=== PATIENT | female | born 1945 | race African-American/Black ===

== ENCOUNTER 2022-05-08 15:27 | Emergency (ER) | payer SELFPAY ==
[~2022-05-08] VITALS: Ht 162.6 cm; Wt 113.4 kg
[2022-05-08 15:41] VITALS: BP 138/92
--- NOTE | 2022-05-08 16:00 | NUR ---
76 y/o female biba from home, c/o dizzy and nausea after ingesting candy. pt states she didnt know the candy contained marijuana and estimated 25mg, unknown amount of thc gummies. pmh: denies nka med: denies
--- NOTE | 2022-05-08 18:25 | NUR ---
Patient being evaluated by BHANU JAMIL at TRIAGE ROOM.
[2022-05-08] MEDS ORDERED: ONDANSETRON 4 MG ODT PO ONE (18:30)
[2022-05-08 21:24] VITALS: BP 138/92
--- NOTE | 2022-05-08 21:24 | NUR ---
Patient discharged with v/s stable. Written and verbal after care instructions given and explained. Patient verbalized understanding. Ambulatory with steady gait. All questions addressed prior to discharge. Advised to follow up with PMD.
== END 2022-05-08 21:24 | disposition home or self-care (01) ==
LOC: MED 15:27
DX: R11.0 Nausea (principal); T40.715A Adverse effect of cannabis, initial encounter; R42 Dizziness and giddiness; Y92.89 Other specified places as the place of occurrence of the external cause
CPT/HCPCS: 99283; Q0162